=== PATIENT | female | born 1950 | race Caucasian/White ===

== ENCOUNTER 2018-02-20 22:12 | Inpatient (IN) | payer OTHER, MEDICAID ==
[~2018-02-20] VITALS: Ht 160 cm; Wt 100.9 kg
[2018-02-20 22:53] VITALS: Ht 160 cm; Wt 100.9 kg
[2018-02-21 00:47] LABS: BASOPHIL % 0.4 % (0-2); PLATELET COUNT 359 x10^3mcL (130-400); RED CELL DISTRIBUTION WIDTH 14.3 % (11.5-14.5)
[2018-02-21 01:01] LABS: CALCIUM 9.2 mg/dL (8.5-10.1); CARBON DIOXIDE 26.6 mmol/L (21-32); CHLORIDE SERUM 108 mmol/L (98-107); CREATININE SERUM 0.8 mg/dL (0.6-1.0); GFR1 > 60 mL/min; GLUCOSE SERUM 145 mg/dL (74-106); POTASSIUM SERUM 4.3 mmol/L (3.5-5.1); SODIUM SERUM 145 mmol/L (136-145)
[2018-02-21 01:06] LABS: ALBUMIN 3.8 g/dL (3.4-5.0); ALKALINE PHOSPHATASE 98 U/L (46-116); ALT/SGPT 7 U/L (14-59); AST/SGOT 21 U/L (15-37); BILIRUBIN TOTAL 0.48 mg/dL (0.20-1.00); TOTAL PROTEIN, SERUM 8.1 g/dL (6.4-8.2)
[2018-02-21] MEDS ORDERED: METFORMIN500 M1 PO (03:12)
[2018-02-21] MEDS ORDERED: SIMVASTATIN10 M1 (03:12)
[2018-02-21 03:48] LABS: MAGNESIUM 2.3 mg/dL (1.8-2.4); PHOSPHOROUS 3.6 mg/dL (2.5-4.9)
[2018-02-21 03:50] LABS: CHOLESTEROL/HDL RATIO 3.6
[2018-02-21 03:53] LABS: FREE T4 1.18 ng/dL (0.76-1.46); T4(THYROXINE) 9.1 ug/dL (4.7-13.3)
[2018-02-21 04:33] VITALS: BP 150/53
[2018-02-21 04:41] LABS: T3 TOTAL 0.87 ng/mL
[2018-02-21 04:58] VITALS: BP 150/53
[2018-02-21 08:28] LABS: UA SPECIFIC GRAVITY 1.015 (1.005-1.035); microscopic required? YES; urine erythrocyte 1+ (NEGATIVE)
[2018-02-21 09:08] LABS: AMPHETAMINE QUAL UR NONE DETECTED (See below)
[2018-02-21 09:36] VITALS: BP 128/81
[2018-02-21 13:50] VITALS: BP 157/76
[2018-02-21 17:39] VITALS: BP 156/64
[2018-02-22 06:33] VITALS: BP 147/57
[2018-02-22 07:09] LABS: BASOPHIL % 0.2 % (0-2); PLATELET COUNT 285 x10^3mcL (130-400)
[2018-02-22 07:13] LABS: CALCIUM 8.8 mg/dL (8.5-10.1); CARBON DIOXIDE 24.4 mmol/L (21-32); CHLORIDE SERUM 108 mmol/L (98-107); CREATININE SERUM 0.6 mg/dL (0.6-1.0); GFR1 > 60 mL/min; GLUCOSE SERUM 105 mg/dL (74-106); MAGNESIUM 2.1 mg/dL (1.8-2.4); PHOSPHOROUS 3.8 mg/dL (2.5-4.9); SODIUM SERUM 142 mmol/L (136-145)
[2018-02-22 07:14] LABS: RED CELL DISTRIBUTION WIDTH 15.1 % (11.5-14.5)
[2018-02-22 08:45] VITALS: BP 137/71
[2018-02-22] MEDS ORDERED: ATI2I IV (10:08)
[2018-02-22 11:45] VITALS: BP 137/71
== END 2018-02-22 13:43 | DRG 885 ==
LOC: ED 22:12 → DU 02-21 02:46
PROVIDERS: Emergency Medicine; Internal Medicine
DX: F23 Brief psychotic disorder (principal); G93.40 Encephalopathy, unspecified; N39.0 Urinary tract infection, site not specified; D68.69 Other thrombophilia; H70.003 Acute mastoiditis without complications, bilateral; E11.65 Type 2 diabetes mellitus with hyperglycemia; E78.5 Hyperlipidemia, unspecified; H54.8 Legal blindness, as defined in USA; Z68.34 Body mass index [BMI] 34.0-34.9, adult
CPT/HCPCS: 82962; 84439; G0480; J0696; J2060; J7030